=== PATIENT | male | born 1990 | race Caucasian/White ===

== ENCOUNTER → 2021-04-07 14:58 | Outpatient (BNVA) | payer OTHER, SELFPAY | PROVIDERS: PCP Nurse Practitioner Family; Visit Provider Internal Medicine Pulmonary Disease | DX: J45.909 Unspecified asthma, uncomplicated (principal) | CPT/HCPCS: 99202 ==

== ENCOUNTER 2021-07-20 14:36 | Outpatient (REF) | payer OTHER, SELFPAY ==
--- NOTE | 2021-07-20 17:21 | PFT_ITS ---
INDICATION: Evaluation of hyper-reactive airways. FINDINGS: The patient did undergo of the methacholine protocol receiving incremental dosages of methacholine and monitoring closely the spirometry. After the 4th dose of methacholine, which was 4 mg dose, the patient's FEV1 was reported to be decreased about 25% from his baseline. Consistent with a positive study. INTERPRETATION: This is a positive methacholine challenge consistent with hyperreactive airways and likely the diagnosis of asthma. Clinical correlation warranted. MD HOLLIS Arce/CARMELO / [phone]
== END 2021-07-20 14:37 | disposition home or self-care (01) ==
LOC: HO.RESP 14:36
PROVIDERS: Visit Provider Internal Medicine Pulmonary Disease
DX: D64.9 Anemia, unspecified (principal)
CPT/HCPCS: 94070; J7674

== ENCOUNTER → 2021-07-23 14:20 | Outpatient (BNVA) | payer OTHER, SELFPAY | PROVIDERS: PCP Nurse Practitioner Family; Visit Provider Internal Medicine Pulmonary Disease | DX: J45.909 Unspecified asthma, uncomplicated (principal) | CPT/HCPCS: 99212 ==

== ENCOUNTER 2021-12-06 18:10 | Outpatient (REF) | payer OTHER, SELFPAY ==
--- NOTE | ~2021-12-06 | MR_ITS ---
EXAMINATION: MR LUMBAR SPINE WITHOUT CONTRAST CLINICAL INFORMATION: Low back pain. Left lower extremity pain, weakness, and numbness. COMPARISON: No relevant prior imaging. TECHNIQUE: MRI of the lumbar spine was obtained using routine sequences without contrast. FINDINGS: Alignment is normal. Vertebral body heights are preserved. No acute bone marrow signal changes. There is loss of intervertebral disc height and T2 signal intensity at L5-S1 related to disc degeneration. The tip of the conus medullaris is located at L1. No mass effect on the conus. Visualized distal cord signal intensity is normal. At L1-L2, L2-L3, L3-L4, and L4-L5 the annular contours are normal. No canal or neuroforaminal compromise at these 4 levels. At L5-S1 there is a left central to subarticular extrusion with 1.4 cm superior subligamentous extension of extruded disc material. Bilateral facet degenerative change. No canal stenosis. There is asymmetric mass effect on the left L5 nerve roots. No canal stenosis. There is also mild mass effect on the foraminal/extraforaminal segment of the right L5 nerve root. Limited visualization of the retroperitoneal anatomy reveals no abnormal finding. Psoas and paraspinal muscle groups are symmetric. MR/MR lumbar spine wo con IMPRESSION: A left central to subarticular extrusion at L5-S1 causes asymmetric compression of the left L5 nerve roots. There is also mild mass effect on the foraminal/extraforaminal segment of the right L5 nerve root related to degenerative changes at L5-S1. No canal stenosis.
--- NOTE | ~2021-12-06 | XR_ITS ---
EXAMINATION: XR ORBITS CLINICAL INFORMATION: Pre-MRI COMPARISON: None TECHNIQUE: X-ray of the frontal and lateral orbits. FINDINGS: There is no radiographic evidence of a metallic object in the orbits. The frontal sinuses are clear. There is no other abnormality. XR/XR pre mri screening IMPRESSION: No radiographic evidence of foreign body in orbits.
== END 2021-12-06 18:11 | disposition home or self-care (01) ==
LOC: HO.MRI 18:10
PROVIDERS: Visit Provider Nurse Practitioner Family
DX: M54.50 Low back pain, unspecified (principal)
CPT/HCPCS: 72148

== ENCOUNTER 2023-03-13 10:40 | Outpatient (AMB) | payer OTHER, SELFPAY ==
[2023-03-13 10:47] VITALS: BP 130/88; PULSE 74; BMI 35.7
--- NOTE | 2023-03-13 10:47 | MHC.OFFVIS ---
Intake Vital Signs 03/13/23 10:47 Height 5 ft 6 in Weight 221 lb BMI 35.7 BP 130/88 Blood Pressure Location Rt brachial Position Sitting Pulse 74 Intake Visit Reasons: Infected sebaceous cyst of scalp Intake Note: Patient referred for lump on Rt post scalp. Has been present for 3m. Denies previous trauma. Waste Transportation Technician Required: No Accompanied by: Self / Same As Patient Allergies No Known Allergies Allergy (Verified 03/13/23 10:49) Medication List - Last Reconciled 03/13/23 by Marc Paz MD albuterol sulfate 90 mcg/actuation 2 inhalations inhalation Q6H PRN albuterol sulfate 2.5 mg inhalation Q6H buspirone 5 mg PO BID fluticasone propionate 50 mcg/actuation 1 spray intranasal DAILY loratadine 10 mg PO DAILY omeprazole 20 mg PO DAILY HPI HPI Comments History of Present Illness Details Patient presents with a long standing history of a right parietal soft tissue mass. His increasing in size, becoming more symptomatic. He wished to have excised. He has no such lesions elsewhere. Chart was reviewed patient evaluated [facility] Medical History (Updated 03/13/23 @ 10:50 by DAREK Del Angel) PTSD (post-traumatic stress disorder) Depression Anxiety Asthma Social History (Updated 03/13/23 @ 10:51 by DAREK Del Angel) Alcohol intake: current Alcohol intake frequency: holidays/special occasions only Alcohol type: beer Patient Tobacco Use Status: Current someday Tobacco user Tobacco use type: Cigarette Cigarettes Per Day: 3 Physical Exam Vital Signs: Last Vital Signs Pulse 74 03/13/23 10:47 BP 130/88 03/13/23 10:47 BMI result Body Mass Index 35.7 HEENT Other: Deeply situated right parietal mass is consistent with a lipoma measuring approximately 3 by 2 cm. Office Procedures Excision Details: Risks, benefits, alternatives of excision of right parietal deep scalp mass reviewed the patient and included but not limited to bleeding, infection, recurrence, numbness, pain, scarring the patient was to proceed. All questions were answered. Consent was signed. After appropriate positioning, patient underwent 1% lidocaine and Betadine prep and a longitudinal incision was made over the mass in question and carried down through skin, subcutaneous tissue, where a large deeply situated lipoma was uneventfully enucleated. This measured approximately 3 x 2 cm. Specimen sent to pathology. Wound was irrigated, secured hemostasis, and closed using interrupted 2-0 Prolene suture follow-up bacitracin. Patient tolerated procedure well. 42989-Ibktytee scalp/neck/hands/feet/genitalia 2.1cm-3cm Procedure code (CPT) selection complete Office Meds lidocaine 1 %-epinephrine 1:100,000 injection solution Performing Provider: Marc Paz MD Performing Location: [facility] [place] [facility] Administered by: Marc Paz MD on 03/13/23 11:17 Dose Route Admin Location Dispensed Lot Number Expiration Date [facility] Veterinary Assistant Technician 10 mL Infiltration 10 mL Assessment & Plan Assessment & Plan (1) Lipoma of scalp: Code(s): D17.0 - Benign lipomatous neoplasm of skin and subcutaneous tissue of head, face and neck Plan: Patient has been given local instructions including ice to the wound periodically today and tomorrow, may shower tomorrow, bacitracin to the wound each day and patient will see me in 1.5 weeks time or p.r.n.. Orders: Orders AMB Excision Today D17.0 - Benign lipomatous neoplasm of skin and subcutaneous tissue of head, face and neck Coding Level of Care Code New Pt Level 4 (22033) Diagnoses Lipoma of scalp D17.0 CPT Codes Scalp/Neck/Hands/Feet/Genetalia - CPT: 14945-Ykapzzaj scalp/neck/hands/feet/genitalia 2.1cm-3cm ([id number])
== END 2023-03-13 11:21 | disposition home or self-care (01) ==
PROVIDERS: PCP Nurse Practitioner Family; Referring Provider Nurse Practitioner Family; Visit Provider Surgery
DX: D17.0 Benign lipomatous neoplasm of skin and subcutaneous tissue of head, face and neck (principal)
CPT/HCPCS: 21012; 99203

== ENCOUNTER 2023-03-13 10:40 | Outpatient (REF) | payer OTHER, SELFPAY | END 2023-03-13 10:41 | disposition home or self-care (01) | LOC: HO.LNP 10:40 | PROVIDERS: PCP Nurse Practitioner Family; Referring Provider Nurse Practitioner Family; Visit Provider Surgery | DX: D17.0 Benign lipomatous neoplasm of skin and subcutaneous tissue of head, face and neck (principal) | CPT/HCPCS: 21012; 88304; 99202 ==

== ENCOUNTER → 2023-03-21 15:08 | Outpatient (BNVA) | payer OTHER, SELFPAY | PROVIDERS: PCP Nurse Practitioner Family; Visit Provider Surgery | DX: D17.0 Benign lipomatous neoplasm of skin and subcutaneous tissue of head, face and neck (principal) ==

== ENCOUNTER 2023-04-17 09:35 | Outpatient (AMB) | payer OTHER, SELFPAY ==
--- NOTE | 2023-04-17 09:37 | MHC.OFFVIS ---
Intake Vital Signs 04/17/23 09:50 Height 5 ft 6 in Weight 223 lb BMI 36.0 BP 130/78 Blood Pressure Location Lt brachial Position Sitting Respiration 17 Pulse 96 Pulse Source Pulse Oximeter Pulse Oximetry (%) 99 Oxygen Delivery Method Room Air Intake Visit Reasons: Low Back Pain Allergies No Known Allergies Allergy (Verified 04/17/23 09:51) HPI HPI Comments History of Present Illness Details Royce is very pleasant 33 years old gentleman who presents in my office with very mild pain in the lower back mostly on the right side. He reports that this pain started quite sometime ago. 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 He reports that his pain is worse in the morning and this severe in at night. He cannot sleep normally but he can do activities of daily living taking care of himself and he can not function normally. He reports his pain is sharp, cutting, lacerating sensation. Flexing forward aggravates his pain. He is remarkable flexible with flexing backwards. He denies Valsalva maneuver coughing sneezing aggravates his pain. He denies pelvic organ dysfunction. He went for chiropractor and he finished his chiropractic sessions 2 weeks ago. He reports great improvement for chiropractic manipulations for his pain. He has an MRI of the lumbar spine and MRI reports dictated as below. He has negative past medical history negative past surgical history social history he is working individual he admits smoking half a pack of cigarettes per day and drinks 6 packs per beer drinks caffeinated beverages 1 a day and denies recreational drugs. [facility] Medical History (Updated 04/17/23 @ 10:34 by Jonathan Farley MD) PTSD (post-traumatic stress disorder) Depression Anxiety Asthma Social History (Updated 03/13/23 @ 10:51 by DAREK Del Angel) Alcohol intake: current Alcohol intake frequency: holidays/special occasions only Alcohol type: beer Patient Tobacco Use Status: Current someday Tobacco user Tobacco use type: Cigarette Cigarettes Per Day: 3 Review of Systems Const Denies fatigue, Denies weight gain and Denies weight loss Eyes Denies blurry vision ENT Reports Normal hearing present and Denies sore throat Card Denies dyspnea Resp Denies cough and Denies dyspnea GI Denies constipation and Denies diarrhea Denies dysuria and Denies urinary frequency Musc Denies numbness and Reports tingling Neuro Reports Normal hearing present, Denies Abnormal speech present, Denies confusion, Denies numbness, Denies Sensory deficit (Neuro), Reports tingling and Denies tremor(s) Psych Reports abnormal sleep pattern, Denies confusion and Denies depression Endo Denies fatigue Physical Exam Vital Signs: Last Vital Signs Pulse 96 04/17/23 09:50 Resp 17 04/17/23 09:50 BP 130/78 04/17/23 09:50 Pulse Ox 99 04/17/23 09:50 Oxygen Delivery Method Room Air 04/17/23 09:50 BMI result Body Mass Index 36.0 Const General: no acute distress; No confusion Nutritional Appearance: obese morbidly obese Orientation/consciousness: patient oriented x3 and No confusion Eyes General: appearance normal, both eyes and all related structures Pupils: Equal, round and reactive pupils present EOM: EOMs intact bilaterally Neck Neck: Yes full ROM Chest Chest palpation & inspection: normal inspection of the chest Resp Effort & Inspection: normal respiratory effort, able to speak in complete sentences, normal respiratory pattern, no audible wheezes and no cough Cardio Jugular venous distension: no JVD GI Inspection: Yes normal to inspection Back/Spine/Pelvis Other: No tenderness on palpation of paraspinal spinal region lumbar spine. No tenderness on palpation in the projection of sacroiliac joints. Joaquin test is negative for the pain in the projection of the sacroiliac joint. He has some tension in the lateral hip was performing of Joaquin test on the right. SLR is negative bilaterally. Valsalva maneuver is negative for pain increase. Flexing forward aggravates his pain moderately. Flexing backwards he demonstrates remarkable flexibility without pain aggravation. Neuro General: patient oriented x3, gait normal and No confusion Cranial nerves: Yes CN's II-XII intact bilaterally, Yes Equal, round and reactive pupils present, Yes Normal hearing present and Yes Ability to bilaterally elevate shoulders present Speech: No Abnormal speech present Gait exam (Neuro): Normal gait present Motor exam (neuro): 5/5 motor strength present throughout Sensory Exam: No Sensory deficit (Neuro) Extrem General: No pedal edema Psych Speech and movement: Normal speech and movement present Affect: normal affect Attitude: cooperative Thought process: Normal thought process present Thought content: Normal thought content present Insight: Good insight present (Psych) Judgement: Good judgement present (Psych) Results Reviewed Results Reviewed: MRI lumbar spine 12/06/2021. Findings alignment is normal vertebral body heights are preserved no acute bone marrow signal changes there is a loss of intervertebral disc height id T2 signal intensity at L5-S1 related to disc degeneration. Conus terminates at L1. No mass effect on the conus. L1-L2 L2-L3 L3-L4 and L4-5 annular contours are normal. No canal or neuroforaminal compromise at this for levels. L5-S1 left central to subarticular extrusion with 1.4 cm superior subligamentous extension of the extruded disc material. Bilateral facet degenerative changes. No canal stenosis. There is a symmetric mass effect on left L5 nerve root. No canal stenosis. There is also mild mass effect on foraminal extraforaminal segment of the right L5 nerve root. Limited visualization of retroperitoneal anatomy reveals no abnormal findings psoas and paraspinal muscles groups are symmetric. Assessment & Plan Assessment & Plan (1) Low back pain: Code(s): M54.50 - Low back pain, unspecified (2) Disc degeneration, lumbar: Code(s): M51.36 - Other intervertebral disc degeneration, lumbar region Plan This patient most likely suffers from disc degeneration and disc related pains however myofascial pain syndrome cannot be excluded either. He went for chiropractor in due to chiropractic manipulations he had his pain greatly reduced. Today he reports his pain 2/10. I recommended him to report to chiropractor once his pain and if his pain will become severe. If the chiropractor will not be helpful for him in the future he is welcome to come back and we will discuss his condition and possibility of treating his pain with injections and or neuromodulation. Coding Level of Care Code New Pt Level 3 (40992) Diagnoses Low back pain M54.50 Disc degeneration, lumbar M51.36
[2023-04-17 09:50] VITALS: BP 130/78; PULSE 96; RESP 17; O2SAT 99; BMI 36.0
== END 2023-04-17 10:28 | disposition home or self-care (01) ==
PROVIDERS: PCP Nurse Practitioner Family; Referring Provider Nurse Practitioner Family; Visit Provider Anesthesiology
DX: M54.50 Low back pain, unspecified (principal); M51.36 Other intervertebral disc degeneration, lumbar region
CPT/HCPCS: 99203

== ENCOUNTER → 2023-04-17 09:35 | Outpatient (BNVA) | payer OTHER, SELFPAY | PROVIDERS: PCP Nurse Practitioner Family; Referring Provider Nurse Practitioner Family; Visit Provider Anesthesiology | DX: M54.50 Low back pain, unspecified (principal); M51.36 Other intervertebral disc degeneration, lumbar region | CPT/HCPCS: 99202 ==